=== PATIENT | male | born 1965 | race African-American/Black ===

== ENCOUNTER 2023-05-08 15:38 | Emergency (ER) | payer MEDICARE, SELFPAY ==
--- NOTE | 2023-05-08 15:44 | ED.MALEGU ---
HPI - Male Genitourinary General Chief complaint: Urogenital-Male Stated complaint: STD Testing Time Seen by Provider: 05/08/23 16:01 Source: patient, RN notes reviewed and old records reviewed Mode of arrival: ambulatory Limitations: no limitations History of Present Illness HPI Narrative: 57-year-old male presents to the [facility] requesting antibiotics for bacterial vaginitis. Patient states that his partner tested positive for BV and was given an antibiotic. He was seeing if he needed one. Patient educated on bacterial vaginitis. Offered testing for chlamydia, gonorrhea and Trichomonas. Explained to patient that those are the only 3 that we test for and that if he needs further evaluation to follow-up with primary care provider at the [facility]. Patient verbalized understanding Patient denies any penile discharge. No problem with urination. No open sores. No rashes. Patient denies any fevers, abdominal pain. Reports he has recently had blood work done at the [facility] which showed nothing abnormal. Related Data Sexually active: Yes Home Medications Medication Instructions Recorded Confirmed Unable to Obtain Home Medications 05/08/23 05/08/23 Allergies Allergy/AdvReac Type Severity Reaction Status Date / Time ciprofloxacin [From Cipro] Allergy Hives Verified 05/08/23 15:55 gabapentin Allergy Confusion Verified 05/08/23 15:55 Review of Systems Review of Systems: All systems reviewed & are unremarkable except as noted in HPI and below Constitutional: Constitutional: Reports no additional constitutional complaints Eyes: Eyes: Reports no additional eye complaints ENT: Reports system reviewed and no additional complaints, except as documented Cardiovascular: Cardiovascular: Reports no additional cardiovascular complaints, Denies chest pain and Denies dyspnea Respiratory: Respiratory: Reports no additional respiratory complaints, Denies chest congestion, Denies cough and Denies dyspnea Gastrointestinal: Gastrointestinal: Reports no additional gastrointestinal complaints, Denies abdominal pain, Denies nausea and Denies vomiting Musculoskeletal: Musculoskeletal: Reports no additional musculoskeletal complaints Integumentary/Breasts: Skin/Breast: Reports system reviewed and no additional complaints, except as docu Neurologic: Reports system reviewed and no additional complaints, except as documented Psychiatric: Psychiatric: Reports no additional psychiatric complaints Allergic/Immunologic: Allergic/Immunologic: Reports no additional allergic/immunologic complaints PMFSH Comments At the time of my signature, I reviewed and agree with the nursing past medical, surgical, social, and family history. There is no relevant family history pertinent to the patient complaint. Exam Const: General: cooperative, healthy appearing, comfortable, no acute distress, well developed, alert and well nourished Nutritional Appearance: well nourished Orientation/consciousness: patient oriented x3 Limitations: no limitations HENMT: Head: normal to inspection Ears: hearing grossly normal bilaterally and external ears normal Face/Nose/Sinus: Normal external nose present, Normal nares present, Normal nasal mucous membranes and turbinates present, normal facial exam and face symmetric Face and sinus: normal facial exam and face symmetric Eyes: General: appearance normal, both eyes and all related structures Alignment and Position: alignment normal Periorbital: periorbital findings normal Pupils: Equal, round and reactive pupils present EOM: EOMs intact bilaterally Neck: Neck: normal visual inspection, full ROM, no lymphadenopathy and no meningeal signs Chest: Chest palpation & inspection: normal inspection of the chest Resp: Effort & Inspection: normal respiratory effort and able to speak in complete sentences Cardio: Rate: regular rate Rhythm: regular rhythm Back/Spine/Pelvis: Cervical Spine: cervical ROM normal Skin: Ge
[2023-05-08 15:56] VITALS: BP 142/94; PULSE 75; RESP 16; TEMP 36.6; O2SAT 99
[2023-05-08 19:46] LABS: Trichomonas Vag PCR NOT DETECTED (NOT DETECTE)
[2023-05-08 20:11] LABS: Chlamydia trachomatis NOT DETECTED (NOT DETECTE); Neisseria gonorrhoeae PCR NOT DETECTED (NOT DETECTE)
== END 2023-05-08 16:23 | disposition home or self-care (01) ==
PROVIDERS: Emergency Provider Nurse Practitioner
DX: Z20.2 Contact with and (suspected) exposure to infections with a predominantly sexual mode of transmission (principal); Z11.3 Encounter for screening for infections with a predominantly sexual mode of transmission; E78.00 Pure hypercholesterolemia, unspecified; M10.9 Gout, unspecified; R73.03 Prediabetes
CPT/HCPCS: 87491; 87591; 87661; 99213; G0463